=== PATIENT | male | born 1960 | race African-American/Black ===

== ENCOUNTER 2019-08-25 23:17 | Emergency (ER) | payer OTHER ==
[~2019-08-25] VITALS: Ht 182.9 cm; Wt 72.3 kg
[2019-08-26] MEDS ORDERED: NITROGLYCERIN 0.4MG TABLET SL SL PRN
[2019-08-26] MEDS ORDERED: ASPIRIN 81MG TABLET PO ONE
[2019-08-26 00:09] LABS: HEMATOCRIT. 44.7 % (42.0-52.0); HEMOGLOBIN. 14.7 g/dL (14.0-18.0); MEAN CORPUSCULAR HEMOGLOBIN 30.8 pg (28.0-32.0); MEAN CORPUSCULAR VOLUME 94.1 fL (80.0-94.0); MEAN PLATELET VOLUME 9.5 fl (7.4-10.4); PLATELET 169 x1000/uL (130-400); RED BLOOD CELL COUNT 4.75 mill/uL (4.7-6.1); RED CELL DISTRIBUTION WIDTH 16.1 % (11.6-14.6)
[2019-08-26 00:19] LABS: INR 1.1; PARTIAL THROMBOPLASTIN TIME 32.9 sec (23.4-31.0); PROTHROMBIN TIME 11.3 sec (9.6-11.0)
[2019-08-26 05:50] LABS: CHLORIDE 108 mEq/L (98-107)
[2019-08-26 08:15] VITALS: BP 104/81
[2019-08-26 12:05] LABS: ATYPICAL LYMPHOCYTES 1; PLATELET ESTIMATE NORMAL
== END 2019-08-26 09:05 | disposition home or self-care (01) ==
LOC: ER 23:17 → CANRESERV 08-26 03:01 → ENRESERV 08-26 03:01 → ER 08-26 09:05 → CANBEDREQ 08-26 09:31
DX: R07.89 Other chest pain (principal); Z20.828 Contact with and (suspected) exposure to other viral communicable diseases; I50.9 Heart failure, unspecified; I45.2 Bifascicular block
CPT/HCPCS: 36415; 71045; 80053; 83880; 84484; 85025; 85610; 85730; 93005; 99285; Z7610

== ENCOUNTER 2019-08-29 22:20 | Emergency (ER) | payer OTHER ==
[~2019-08-29] VITALS: Ht 177.8 cm; Wt 90.0 kg
[2019-08-29] MEDS ORDERED: ASPIRIN 81MG TABLET PO ONE (23:15)
[2019-08-29] MEDS: NITROGLYCERIN 0.4MG TABLET SL SL PRN (23:22)
[2019-08-29 23:43] LABS: HEMATOCRIT. 39.9 % (42.0-52.0); HEMOGLOBIN. 13.6 g/dL (14.0-18.0); MEAN CORPUSCULAR HEMOGLOBIN 31.8 pg (28.0-32.0); MEAN CORPUSCULAR VOLUME 93.7 fL (80.0-94.0); PLATELET 206 x1000/uL (130-400); RED BLOOD CELL COUNT 4.26 mill/uL (4.7-6.1); RED CELL DISTRIBUTION WIDTH 15.1 % (11.6-14.6)
[2019-08-29 23:47] LABS: CHLORIDE 105 mEq/L (98-107)
[2019-08-29 23:51] LABS: ETHANOL BLOOD < 10 mg/dL
[2019-08-29 23:53] LABS: D-DIMER 2.3 mg/L FEU (<0.50); PARTIAL THROMBOPLASTIN TIME 32.4 sec (23.4-31.0)
[2019-08-30] VITALS: BP 110/82
[2019-08-30] MEDS: NITROGLYCERIN 0.4MG TABLET SL SL PRN (00:01)
[2019-08-30 05:26] LABS: ATYPICAL LYMPHOCYTES 1; PLATELET ESTIMATE NORMAL
== END 2019-08-30 00:54 | disposition left against medical advice (07) ==
LOC: ER 22:20
DX: I50.9 Heart failure, unspecified (principal)
CPT/HCPCS: 36415; 80053; 80320; 82728; 83605; 83615; 83880; 84484; 85025; 85379; 93005; 99284; G0480

== ENCOUNTER 2020-08-05 15:35 | Inpatient (IN) | payer MEDICAID, OTHER ==
[~2020-08-05] VITALS: Ht 182.9 cm; Wt 75.3 kg
[2020-08-05] MEDS ORDERED: FUROSEMIDE 40MG/4ML VIAL IVP ONE (17:30)
[2020-08-05 17:49] LABS: HEMATOCRIT. 48.3 % (42.0-52.0); HEMOGLOBIN. 15.7 g/dL (14.0-18.0); MEAN CORPUSCULAR HEMOGLOBIN 31.8 pg (28.0-32.0); MEAN PLATELET VOLUME 10.3 fl (7.4-10.4); PLATELET 98 x1000/uL (130-400); RED BLOOD CELL COUNT 4.93 mill/uL (4.7-6.1); RED CELL DISTRIBUTION WIDTH 17.9 % (11.6-14.6)
[2020-08-05 18:36] LABS: CHLORIDE 113 mEq/L (98-107)
[2020-08-05 18:36] LABS: PLATELET ESTIMATE DECREASED
[2020-08-05 18:38] LABS: INR 1.4; PROTHROMBIN TIME 14.8 sec (9.6-11.0)
[2020-08-05] MEDS ORDERED: ACETAMINOPHEN WITH CODEINE 300/30MG TABLET PO ONE (19:00)
[2020-08-06 02:00] VITALS: BP 111/80
[2020-08-06 04:00] VITALS: BP 96/68
[2020-08-06] MEDS: HYDROCODONE/ACETAMINOPHEN 10/325MG TABLET PO PRN (05:42)
[2020-08-06 06:30] LABS: HEMATOCRIT 48.9 % (42.0-52.0); HEMOGLOBIN 16.2 g/dL (14.0-18.0); MEAN CORPUSCULAR HEMOGLOBIN 31.8 pg (28.0-32.0); MEAN CORPUSCULAR VOLUME 96.4 fL (80.0-94.0); PLATELET 73 x1000/uL (130-400); RED BLOOD CELL COUNT 5.08 mill/uL (4.7-6.1); RED CELL DISTRIBUTION WIDTH 17.5 % (11.6-14.6)
[2020-08-06] MEDS ORDERED: POTA8CAP20 MT (07:46)
[2020-08-06] MEDS ORDERED: FURO-152 MT (07:46)
[2020-08-06] MEDS ORDERED: T3 PO (07:46)
[2020-08-06] MEDS ORDERED: HYDR12.54 MT (07:46)
[2020-08-06] MEDS ORDERED: GABA-529 MT (07:46)
[2020-08-06 08:00] VITALS: BP 99/72
[2020-08-06 08:09] LABS: CHLORIDE 110 mEq/L (98-107)
[2020-08-06 08:16] LABS: LDL CHOLESTEROL 41 mg/dL (5-100)
[2020-08-06 08:18] LABS: HDL CHOLESTEROL 24 mg/dL (40-59)
[2020-08-06] MEDS ORDERED: FUROSEMIDE 40MG/4ML VIAL IVP SCH ×2 (09:00→18:00)
[2020-08-06] MEDS ORDERED: CARVEDILOL 3.125 MG TABLET PO SCH (09:00)
[2020-08-06] MEDS ORDERED: LISINOPRIL 20MG TABLET PO SCH (09:00)
[2020-08-06] MEDS: POTASSIUM CHLORIDE 20MEQ TABLET SR PO SCH (09:24)
[2020-08-06] MEDS: ASPIRIN 81MG TABLET PO SCH (09:24)
[2020-08-06 12:00] VITALS: BP 117/86
[2020-08-06] MEDS ORDERED: DEXTROSE 50% WATER 50ML SYRINGE IV NR ×2 (13:30→14:30)
[2020-08-06] MEDS ORDERED: DEXTROSE 10% WATER 500 ML IV ONE (13:30)
[2020-08-06] MEDS: SPIRONOLACTONE 25MG TABLET PO SCH (13:35)
[2020-08-06] MEDS ORDERED: DEXT 10% WATER 1,000 ML IV ONE (14:00)
[2020-08-06] MEDS: FUROSEMIDE 40MG/4ML VIAL IVP SCH ×2 (14:01→18:49)
[2020-08-06 16:00] VITALS: BP 126/95
[2020-08-06 20:00] VITALS: BP 140/103
[2020-08-06 20:07] LABS: CLARITY URINE CLEAR (CLEAR); COLOR URINE YELLOW (YELLOW); KETONES URINE NEGATIVE (NEGATIVE); LEUKOCYTE ESTERASE URINE NEGATIVE (NEGATIVE); NITRITE URINE NEGATIVE (NEGATIVE); OCCULT BLOOD URINE NEGATIVE (NEGATIVE); PROTEIN URINE NEGATIVE (NEGATIVE); SPECIFIC GRAVITY URINE 1.008 (1.005-1.030)
[2020-08-06] MEDS ORDERED: ONDANSETRON HCL 4MG/2ML INJ IV PRN (21:00)
[2020-08-06] MEDS ORDERED: IOHEXOL-350 100 ML BOTTLE ONE (23:11)
[2020-08-07 00:08] VITALS: BP 142/95
[2020-08-07] MEDS: FUROSEMIDE 100MG/10ML VIAL IVP SCH ×2 (05:48→21:21)
[2020-08-07] MEDS: HYDROCODONE/ACETAMINOPHEN 10/325MG TABLET PO PRN ×2 (06:41→14:23)
[2020-08-07 08:08] VITALS: BP 104/76
[2020-08-07] MEDS ORDERED: LIDOCAINE HCL 1% 20ML VIAL (Pyxis) INJ ONE (08:18)
[2020-08-07] MEDS ORDERED: SODIUM BICARBONATE 4% (2.4MEQ) 5ML VIAL IV ONE (08:18)
[2020-08-07] MEDS ORDERED: ENOXAPARIN 40MG/0.4ML SYR SUBCUT SCH (09:00)
[2020-08-07] MEDS ORDERED: CARVEDILOL 6.25 MG TABLET PO SCH (09:00)
[2020-08-07] MEDS ORDERED: LISINOPRIL 5MG TABLET PO SCH (09:00)
[2020-08-07] MEDS: ASPIRIN 81MG TABLET PO SCH (09:42)
[2020-08-07] MEDS: POTASSIUM CHLORIDE 20MEQ TABLET SR PO SCH (09:43)
[2020-08-07] MEDS: SPIRONOLACTONE 25MG TABLET PO SCH (09:43)
[2020-08-07 10:18] LABS: HEMATOCRIT. 46.4 % (42.0-52.0); HEMOGLOBIN. 14.9 g/dL (14.0-18.0); MEAN CORPUSCULAR HEMOGLOBIN 30.8 pg (28.0-32.0); MEAN CORPUSCULAR VOLUME 96.2 fL (80.0-94.0); MEAN PLATELET VOLUME 10.8 fl (7.4-10.4); PLATELET 79 x1000/uL (130-400); RED BLOOD CELL COUNT 4.83 mill/uL (4.7-6.1); RED CELL DISTRIBUTION WIDTH 17.2 % (11.6-14.6)
[2020-08-07 10:26] LABS: CHLORIDE 104 mEq/L (98-107)
[2020-08-07 12:05] VITALS: BP 110/85
[2020-08-07 14:20] LABS: NUCLEATED RED BLOOD CELLS 9 /100 WBC; PLATELET ESTIMATE DECREASED
[2020-08-07 15:28] VITALS: BP 94/61
[2020-08-07 20:25] VITALS: BP 92/57
[2020-08-08] VITALS: BP 88/46
[2020-08-08 04:00] VITALS: BP 76/51
[2020-08-08] MEDS: FUROSEMIDE 100MG/10ML VIAL IVP SCH (05:30)
[2020-08-08 07:31] LABS: HEMATOCRIT. 47.7 % (42.0-52.0); HEMOGLOBIN. 15.7 g/dL (14.0-18.0); MEAN CORPUSCULAR HEMOGLOBIN 31.7 pg (28.0-32.0); MEAN CORPUSCULAR VOLUME 96.2 fL (80.0-94.0); MEAN PLATELET VOLUME 10.6 fl (7.4-10.4); PLATELET 80 x1000/uL (130-400); RED BLOOD CELL COUNT 4.96 mill/uL (4.7-6.1); RED CELL DISTRIBUTION WIDTH 16.9 % (11.6-14.6)
[2020-08-08 08:00] VITALS: BP 75/48
[2020-08-08] MEDS ORDERED: SPIRONOLACTONE 25MG TABLET PO SCH (09:00)
[2020-08-08] MEDS: FUROSEMIDE 40MG TABLET PO SCH (09:00)
[2020-08-08] MEDS ORDERED: AMLODIPINE 5MG TABLET PO SCH (09:00)
[2020-08-08] MEDS ORDERED: HYDROCODONE/ACETAMINOPHEN 10/325MG TABLET PO PRN (09:00)
[2020-08-08] MEDS: POTASSIUM CHLORIDE 20MEQ TABLET SR PO SCH (09:01)
[2020-08-08] MEDS: MIDODRINE HCL 5MG TABLET PO SCH ×3 (09:02→17:42)
[2020-08-08] MEDS: ASPIRIN 81MG TABLET PO SCH (09:04)
[2020-08-08] MEDS ORDERED: LIDOCAINE HCL 1% 20ML VIAL (Pyxis) INJ INFIL SCH (11:00)
[2020-08-08] MEDS ORDERED: LIDOCAINE HCL 2% JELLY 5ML TOP SCH (11:00)
[2020-08-08 11:59] LABS: CHLORIDE 104 mEq/L (98-107)
[2020-08-08 12:00] VITALS: BP 88/62
[2020-08-08 13:49] LABS: NUCLEATED RED BLOOD CELLS 1 /100 WBC
[2020-08-08 13:50] LABS: PLATELET ESTIMATE DECREASED
[2020-08-08 16:00] VITALS: BP 78/53
[2020-08-08] MEDS ORDERED: DEXT 10% WATER 1,000 ML IV SCH (18:45)
[2020-08-08 20:00] VITALS: BP 96/73
[2020-08-09 04:00] VITALS: BP 97/70
[2020-08-09 08:00] VITALS: BP 90/66
[2020-08-09] MEDS: ASPIRIN 81MG TABLET PO SCH (08:20)
[2020-08-09] MEDS: FUROSEMIDE 40MG TABLET PO SCH (08:20)
[2020-08-09] MEDS: POTASSIUM CHLORIDE 20MEQ TABLET SR PO SCH (08:20)
[2020-08-09] MEDS: MIDODRINE HCL 5MG TABLET PO SCH ×3 (08:21→16:01)
[2020-08-09 08:31] LABS: HEMATOCRIT. 45.1 % (42.0-52.0); HEMOGLOBIN. 14.9 g/dL (14.0-18.0); MEAN CORPUSCULAR HEMOGLOBIN 31.3 pg (28.0-32.0); MEAN CORPUSCULAR VOLUME 94.3 fL (80.0-94.0); RED BLOOD CELL COUNT 4.78 mill/uL (4.7-6.1); RED CELL DISTRIBUTION WIDTH 16.6 % (11.6-14.6)
[2020-08-09 08:49] LABS: T4 FREE 1.37 ng/dL (0.76-1.46)
[2020-08-09 12:00] VITALS: BP 104/78
[2020-08-09] MEDS ORDERED: DEXT 10% WATER 1,000 ML IV SCH (12:00)
[2020-08-09 13:53] LABS: PLATELET 90 x1000/uL (130-400)
[2020-08-09 13:58] LABS: NUCLEATED RED BLOOD CELLS 5 /100 WBC
[2020-08-09 13:59] LABS: PLATELET ESTIMATE DECREASED
[2020-08-09 16:00] VITALS: BP 98/76
[2020-08-09 20:21] VITALS: BP 97/52
[2020-08-10 00:26] VITALS: BP 96/77
[2020-08-10 04:25] VITALS: BP 101/74
[2020-08-10] MEDS ORDERED: DEXTROSE 50% WATER 50ML SYRINGE IV SCH (05:45)
[2020-08-10 06:31] LABS: BASOPHILS % 0.6 % (0.0-2.0); EOSINOPHILS % 1.2 % (0.0-5.0); HEMATOCRIT. 46.5 % (42.0-52.0); HEMOGLOBIN. 15.5 g/dL (14.0-18.0); LYMPHOCYTES % 29.7 % (20.0-50.0); MEAN CORPUSCULAR HEMOGLOBIN 32.1 pg (28.0-32.0); MEAN CORPUSCULAR VOLUME 96.5 fL (80.0-94.0); MEAN PLATELET VOLUME 10.3 fl (7.4-10.4); MONOCYTES % 13.5 % (2.0-8.0); PLATELET 78 x1000/uL (130-400); RED BLOOD CELL COUNT 4.82 mill/uL (4.7-6.1)
[2020-08-10 08:00] VITALS: BP 110/80
[2020-08-10] MEDS: MIDODRINE HCL 5MG TABLET PO SCH ×3 (09:45→17:00)
[2020-08-10] MEDS: POTASSIUM CHLORIDE 20MEQ TABLET SR PO SCH (09:45)
[2020-08-10 12:00] VITALS: BP 127/93
[2020-08-10 13:07] LABS: C-PEPTIDE 4.8 ng/mL (1.1-4.4); INSULIN 12.9 uIU/mL (2.6-24.9)
[2020-08-10 16:00] VITALS: BP 121/99
[2020-08-10 20:00] VITALS: BP 118/80
[2020-08-10 22:33] LABS: CHLORIDE 101 mEq/L (98-107)
[2020-08-11] VITALS: BP 120/89
[2020-08-11 04:00] VITALS: BP 119/88
[2020-08-11] MEDS ORDERED: DEXTROSE 50% WATER 50ML SYRINGE IV PRN (07:15)
[2020-08-11] MEDS: BLOOD SUGAR DIAGNOSTIC STRIP TEST SCH ×3 (07:52→17:02)
[2020-08-11 08:03] VITALS: BP 107/81
[2020-08-11] MEDS: POTASSIUM CHLORIDE 20MEQ TABLET SR PO SCH (09:22)
[2020-08-11] MEDS: MIDODRINE HCL 5MG TABLET PO SCH ×3 (09:22→17:00)
[2020-08-11] MEDS ORDERED: TAMSULOSIN HCL 0.4MG SR CAPSULE PO SCH (10:00)
[2020-08-11] MEDS ORDERED: HYDROCODONE/ACETAMINOPHEN 10/325MG TABLET PO PRN (10:45)
[2020-08-11 12:07] VITALS: BP 123/94
[2020-08-11 13:19] LABS: SODIUM URINE RANDOM 26 mEq/L
[2020-08-11 14:52] VITALS: BP 123/41
[2020-08-11 16:02] VITALS: BP 139/90
[2020-08-13 10:09] LABS: C-PEPTIDE 5.2 ng/mL (1.1-4.4); INSULIN 18.1 uIU/mL (2.6-24.9)
[2020-08-13 13:07] LABS: PRO INSULIN 3.3 pmol/L (0.0-10.0)
== END 2020-08-11 18:27 | DRG 194 ==
LOC: ER 15:35 → 6WST 19:55 → ENRESERV 23:32
PROVIDERS: ADMIT Internal Medicine; ATTEND Internal Medicine
PROC: 0W9G3ZZ Drainage of Peritoneal Cavity, Percutaneous Approach (ICD-10-PCS; 2020-08-07)
PROC: 0JBQ0ZZ Excision of Right Foot Subcutaneous Tissue and Fascia, Open Approach (ICD-10-PCS; principal; 2020-08-08)
PROC: 0HBRXZZ Excision of Toe Nail, External Approach (ICD-10-PCS; 2020-08-08)
PROC: 0HBRXZZ Excision of Toe Nail, External Approach (ICD-10-PCS; 2020-08-08)
PROC: 0HBRXZZ Excision of Toe Nail, External Approach (ICD-10-PCS; 2020-08-08)
PROC: 0HBRXZZ Excision of Toe Nail, External Approach (ICD-10-PCS; 2020-08-08)
PROC: 0HBRXZZ Excision of Toe Nail, External Approach (ICD-10-PCS; 2020-08-08)
PROC: 0HBRXZZ Excision of Toe Nail, External Approach (ICD-10-PCS; 2020-08-08)
PROC: 0HBRXZZ Excision of Toe Nail, External Approach (ICD-10-PCS; 2020-08-08)
PROC: 0HBRXZZ Excision of Toe Nail, External Approach (ICD-10-PCS; 2020-08-08)
PROC: 0HBRXZZ Excision of Toe Nail, External Approach (ICD-10-PCS; 2020-08-08)
PROC: 0HBRXZZ Excision of Toe Nail, External Approach (ICD-10-PCS; 2020-08-08)
DX: I50.43 Acute on chronic combined systolic (congestive) and diastolic (congestive) heart failure (principal); E43 Unspecified severe protein-calorie malnutrition; E87.2 Acidosis; N17.9 Acute kidney failure, unspecified; D69.6 Thrombocytopenia, unspecified; E87.8 Other disorders of electrolyte and fluid balance, not elsewhere classified; E87.1 Hypo-osmolality and hyponatremia; I27.20 Pulmonary hypertension, unspecified; I31.3 Pericardial effusion (noninflammatory); R18.8 Other ascites; K76.9 Liver disease, unspecified; E16.2 Hypoglycemia, unspecified; I50.82 Biventricular heart failure; L97.419 Non-pressure chronic ulcer of right heel and midfoot with unspecified severity; L97.429 Non-pressure chronic ulcer of left heel and midfoot with unspecified severity; L85.3 Xerosis cutis; I36.1 Nonrheumatic tricuspid (valve) insufficiency; I73.9 Peripheral vascular disease, unspecified; Z20.822 Contact with and (suspected) exposure to COVID-19; Z60.2 Problems related to living alone; L89.90 Pressure ulcer of unspecified site, unspecified stage; Z79.899 Other long term (current) drug therapy; Z80.0 Family history of malignant neoplasm of digestive organs; Z59.0 Homelessness; Z68.22 Body mass index [BMI] 22.0-22.9, adult
CPT/HCPCS: 36415; 49083; 71045; 75635; 76705; 80048; 80053; 80061; 81003; 82330; 82533; 82947; 82962; 83036; 83525; 83605; 83880; 83930; 83935; 84134; 84145; 84206; 84300; 84439; 84443; 84484; 84681; 85025; 85027; 86337; 87070; 87075; 87077; 87186; 87426; 93005; 93306; 93923; 93970; 97162; 99285; C1893; J1940; J2405; J3490; Q9967